=== PATIENT | female | born 1975 | race Caucasian/White ===

== ENCOUNTER 2019-04-25 12:57 | Emergency (ER) | payer BC ==
[2019-04-25] MEDS ORDERED: MORPHINE 4 MG/ML SYR ONE (13:35)
[2019-04-25] MEDS ORDERED: LORazepam 2 MG/ML VIAL ONE ×2 (13:35→15:23)
--- NOTE | 2019-04-25 13:39 | RAD REPORT ---
EXAM DESCRIPTION: RAD - Chest Single View - 04/25/2019 1:34 pm CLINICAL HISTORY: near syncope, SOB, palpitations Chest pain. COMPARISON: CHEST PA AND LAT 2 VIEW dated 10/13/2014 FINDINGS: Portable technique limits examination quality. The lungs are grossly clear. The heart is normal in size. No displaced fractures. IMPRESSION: No acute intrathoracic process suspected.
[2019-04-25] MEDS ORDERED: MORPHINE 2 MG/ML SYR ONE (14:32)
[2019-04-25 14:41] LABS: Absolute Lymphocytes (CBC) 0.9 K/uL (0.7-4.9); Basophils % 1.1 % (0-1.3); Hematocrit 33.3 % (36.0-45.0); Lymphocytes % 16.9 % (15.3-44.8); MPV 9.8 fL (7.6-11.3); RBC Red Blood Cell Count 4.32 M/uL (3.86-4.86)
[2019-04-25 14:54] LABS: ALT/SGPT 25 U/L (12-78); AST/SGOT 19 U/L (15-37); Albumin 3.6 g/dL (3.4-5.0); Alkaline Phosphatase 109 U/L (45-117); BUN Blood Urea Nitrogen 8 mg/dL (7-18); Bicarbonate 23 mmol/L (21-32); Bilirubin Direct < 0.1 mg/dL (0-0.2); Bilirubin Total 0.3 mg/dL (0.2-1.0); Glucose Level 89 mg/dL (74-106); Magnesium 2.2 mg/dL (1.8-2.4); NT PRO-BNP 172 pg/mL (<125); Potassium 3.4 mmol/L (3.5-5.1); Sodium Level 140 mmol/L (136-145); Troponin (Emerg Dept Use Only) < 0.02 ng/mL (0.0-0.045)
--- NOTE | 2019-04-25 14:55 | EKG ---
Test Date: 2019-04-25 Test Time: 13:30:24 Sheet Combining Operator: CATA MEASUREMENT RESULTS: Intervals: Rate: 83 AL: 144 QRSD: 80 QT: 372 QTc: 437 [place]: P: 60 AL: 144 QRS: 26 T: 57 INTERPRETIVE STATEMENTS: Normal sinus rhythm Normal ECG No previous ECG available for comparison Electronically Signed On 04-25-19 14:54:48 CREDENTIALING ASSISTANT by Lazaro Nicholson
[2019-04-25 15:54] LABS: Protime INR 0.98
--- NOTE | 2019-04-25 16:57 | RAD REPORT ---
EXAM DESCRIPTION: CT - Chest For Pe Angio - 04/25/2019 4:49 pm CLINICAL HISTORY: Chest pain COMPARISON: None. TECHNIQUE: Dynamically enhanced axial 3 mm thick images of the chest were obtained during administra tion of <100> mL Isovue 370 IV contrast. Coronal and oblique reconstruction images were generated and reviewed. Exam utilizes a protocol for optimal evaluation of pulmonary arterial tree. Maximum intensity projections 3D imaging was utilized All CT scans are performed using dose optimization technique as appropriate and may include automated exposure control or mA/KV adjustment according to patient size. FINDINGS: A pulmonary embolus is not seen. A thoracic aortic aneurysm is not noted. A pleural effusion is not seen. A pericardial effusion is not seen. A lung consolidation is not present. IMPRESSION: Negative for a pulmonary embolism.
--- NOTE | 2019-04-25 17:11 | RAD REPORT ---
EXAM DESCRIPTION: CTSpine Lumbar Wo Con04/25/2019 4:49 pm CLINICAL HISTORY: Back injury with back pain and radiculopathy status post fall from a ladder 7 feet COMPARISON: None TECHNIQUE: Computed axial tomography lumbar spine was obtained with coronal and sagittal reconstruct ion. All CT scans are performed using dose optimization technique as appropriate and may include automated exposure control or mA/KV adjustment according to patient size. FINDINGS: Posterior fusion involves L5 and S1 via screws and bone plug. Right hemilaminectomy L4 7.5 x 2.5 x 2 centimeter (cc by AP by trans) fluid collection lies posterior to the spinous processes extending from L3-L5. No fracture or dislocation L1-2, L2-3 and L3-4 appear unremarkable Right posterolateral soft tissue L4-5 encroaches upon the anterior right aspect of the thecal sac. Limited evaluation of L5-S1 secondary to the instrumentation Evaluation of the spinal canal is somewhat limited on a CT scan Nonobstructing left renal calculi A lucency is present within the L5-S1 bone plug IMPRESSION: Postsurgical changes involving the spine 7.5 x 2.5 x 2 centimeter (cc by AP by trans) fluid collection lies posterior to the spinous processes extending from L3-L5. This could represent a hematoma or abscess Right posterior-lateral soft tissue structure L4-5 is nonspecific on this examination. It could repre sent epidural inflammation/fibrosis secondary to surgery or disc herniation A lucency is present within the L5-S1 bone plug. This may indicate a break. Another consideration is that this is the normal appearance for this kind of a bone plug
--- NOTE | 2019-04-25 18:09 | ER ---
Nurse's Notes [facility] Name: Sumaya Villela Age: 44 yrs Sex: Female : 1975 Arrival Date: 04/25/2019 Time: 13:09 Bed 18 Private MD: Diagnosis: Palpitations;Shortness of breath;Pain in right hip;Radiculopathy Presentation: 04/25 13:10 Presenting complaint: Patient states: She had a spinal fusion 3 weeks ago. Today she aj1 started having headache, shortness of breath, palpitations, numbness in her hands and face, right hip pain, right leg pain, back pain. Reports she feels like she is having some weakness in the right leg. She went to the pharmacy today to brain picker some pain medication and she started to feel light-headed and felt like she was going to pass out so she asked pharmacy staff to call for an ambulance. Transition of care: patient was not received from another setting of care. Onset of symptoms was April 25, 2019. Risk Assessment: Do you want to hurt yourself or someone else? Patient reports no desire to harm self or others. Initial Sepsis Screen: Does the patient meet any 2 criteria? No. Patient's initial sepsis screen is negative. Does the patient have a suspected source of infection? No. Patient's initial sepsis screen is negative. Care prior to arrival: None. 13:10 Method Of Arrival: EMS: [facility] aj1 13:10 Acuity: JULIA 3 aj1 Triage Assessment: 13:15 General: Appears in no apparent distress. uncomfortable, Behavior is calm, cooperative, aj1 appropriate for age. Pain: Complains of pain in forehead, back, right hip and right leg. Historical: - Allergies: 13:15 Demerol; aj1 - Home Meds: 13:15 Reglan Oral [Active]; Robaxin Oral [Active]; Adderall XR Oral [Active]; Tylenol #3 Oral aj1 [Active]; - PMHx: 13:15 bowel obstruction; aj1 - PSHx: 13:15 spinal fusion; aj1 - Immunization history:: Adult Immunizations up to date. - Ebola Screening: : Patient denies travel to an Ebola-affected area in the 21 days before illness onset. - Social history:: Smoking status: Patient/guardian denies using tobacco. Screenin:15 Abuse screen: Denies threats or abuse. Denies injuries from another. Nutritional aj1 screening: No deficits noted. Tuberculosis screening: No symptoms or risk factors identified. 18:31 Fall Risk None identified. aj1 Assessment: 13:15 General: Appears in no apparent distress. uncomfortable, Behavior is calm, cooperative, aj1 appropriate for age. Pain: Complains of pain in back, right hip and right leg and forehead Pain does not radiate. Pain currently is 4 out of 10 on a pain scale. Neuro: Level of Consciousness is awake, alert, obeys commands, Oriented to person, place, time, situation, Moves all extremities. Speech is normal, Facial symmetry appears normal, Reports headache numbness in face, right hand and left hand weakness in right foot. Cardiovascular: Reports palpitations, shortness of breath, Patient's skin is warm and dry. Rhythm is sinus rhythm. Respiratory: Reports shortness of breath cough that is dry, Airway is patent Respiratory effort is even, unlabored, Respiratory pattern is regular, symmetrical. GI: No signs and/or symptoms were reported involving the gastrointestinal system. : No signs and/or symptoms were reported regarding the genitourinary system. EENT: No signs and/or symptoms were reported regarding the EENT system. Derm: No signs and/or symptoms reported regarding the dermatologic system. Skin is pink, warm \T\ dry. normal. Musculoskeletal: No signs and/or symptoms reported regarding the musculoskeletal system. Circulation, motion, and sensation intact. 14:15 Reassessment: Patient appears in no apparent distress at this time. No changes from aj1 previously documented assessment. Patient and/or family updated on plan of care and expected duration. Pain level reassessed. Patient is alert, oriented x 3, equal unlabored respirations, skin warm/dry/pink. 14:18 Reassessment: Patient states that the medications helped, but her headache is starting aj1 to come back. Notified Dr. King. 15:15 Reassessment: Patient states that she would like some ice chips and something to help aj1 relax her. Notified Dr. King. Order received. 15:55 Reassessment: Patient transported to MRI via stretcher. aj1 17:05 Reassessment: Patient returned to room from CT. Patient states that her headache is aj1 back. Notified Dr. Kign. 17:58 Reassessment: Patient appears in no apparent distress at this time. No changes from aj1 previously documented assessment. Patient and/or family updated on plan of care and expected duration. Pain level reassessed. Patient is alert, oriented x 3, equal unlabored respirations, skin warm/dry/pink. Vital Signs: 13:15 BP 145 / 96; Pulse 89; Resp 16; Pulse Ox 100% on R/A; Pain 4/10; aj1 13:30 Temp 97.5(TE); aj1 14:35 BP 170 / 93; Pulse 99; Resp 16; Pulse Ox 98% on R/A; aj1 15:30 BP 131 / 85; Pulse 80; Resp 18; Pulse Ox 99% on R/A; aj1 17:05 BP 124 / 84; Pulse 73; Resp 13; Pulse Ox 100% on R/A; aj1 17:59 BP 131 / 90; Pulse 87; Resp 18; Pulse Ox 97% on R/A; aj1 18:05 Weight 67.13 kg (R); aj1 ED Course: 13:09 Patient arrived in ED. tw2 13:10 Emily Johnson, RN is Primary Nurse. aj1 13:11 Anival King MD is Attending Physician. kdr 13:13 Triage completed. aj1 13:15 Arm band placed on. aj1 13:15 Patient has correct armband on for positive identification. Bed in low position. Call aj1 light in reach. 13:15 No provider procedures requiring assistance completed. Maintain EMS IV. Dressing aj1 intact. Site clean \T\ dry. Gauge \T\ site: 20g left wrist. 13:35 EKG done, by orthotic finish grinding technician. reviewed by Anival King MD. at1 13:36 XRAY Chest (1 view) In Process Unspecified. EDMS 16:52 Chest For Pe Angio In Process Unspecified. EDMS 16:52 Spine Lumbar Wo Con In Process Unspecified. EDMS 18:31 IV discontinued, intact, bleeding controlled, No redness/swelling at site. Pressure aj1 dressing applied. Administered Medications: 13:41 Drug: morphine 4 mg {Note: RASS score 0 patient is alert.} Route: IVP; Site: left wrist;aj1 14:40 Follow up: Response: No adverse reaction; RASS: Alert and Calm (0) aj1 13:41 Drug: Ativan 1 mg Route: IVP; Site: left wrist; aj1 14:40 Follow up: Response: No adverse reaction aj1 14:34 Drug: morphine 2 mg Route: IVP; Site: left wrist; aj1 15:30 Follow up: Response: No adverse reaction; RASS: Alert and Calm (0) aj1 15:29 Drug: Ativan 1 mg Route: IVP; Site: left wrist; aj1 16:30 Follow up: Response: No adverse reaction aj1 18:06 CANCELLED (Duplicate Order): Lovenox 0.5 mg/kg Sub-Q once aj1 18:12 Drug: Lovenox 0.5 mg/kg Route: Sub-Q; Site: right lower abdomen; aj1 18:32 Follow up: Response: No adverse reaction aj1 Outcome: 18:08 Discharge ordered by . denton 18:32 Discharged to home ambulatory. aj1 18:32 Condition: good 18:32 Discharge instructions given to patient, Instructed on discharge instructions, follow up and referral plans. medication usage, Demonstrated understanding of instructions, follow-up care, medications, Prescriptions given X 1. 18:32 Patient left the ED. aj1 Signatures: Dispatcher [employer] EDEmily Gordon RN RN aj1 Anival Knig MD MD kdr Gonzales, Amanda, sales correspondent EKG Tat1 Maeve Quinones RN RN tw2 Corrections: (The following items were deleted from the chart) 16:42 15:55 Reassessment: Patient transported to [place] via stretcher aj1 aj1
[2019-04-25] MEDS ORDERED: ENOXAPARIN 30 MG/0.3 ML SQ ONE (18:10)
--- NOTE | 2019-04-25 18:10 | EDPHYS ---
Physician Documentation [facility] Name: Sumaya Villela Age: 44 yrs Sex: Female : 1975 Arrival Date: 04/25/2019 Time: 13:09 Bed 18 Private MD: ED Physician Anival King HPI: 04/25 13:17 This 44 yrs old Female presents to ER via EMS with complaints of near kdr syncope, palpitations and right hip pain. 13:17 The patient has had a recently (3 weeks ago) lumbar spinal surgery which has appeared kdr to progress normally until the last 12 hours when she started to have increasing pain in her left hip. She denies the pain being like sciatic pain. . Onset: The symptoms/episode began/occurred suddenly, today, More acute pain just prior to arrival while driving. Severity of symptoms: At their worst the symptoms were moderate severe incapacitating just prior to arrival, in the emergency department the symptoms have improved markedly. The patient has not experienced similar symptoms in the past. As noted above, she had spinal surgery about three ago. She has well healing incisions to her low back and abdominal area. Historical: - Allergies: 13:15 Demerol; aj1 - Home Meds: 13:15 Reglan Oral [Active]; Robaxin Oral [Active]; Adderall XR Oral [Active]; Tylenol #3 Oral aj1 [Active]; - PMHx: 13:15 bowel obstruction; aj1 - PSHx: 13:15 spinal fusion; aj1 - Immunization history:: Adult Immunizations up to date. - Ebola Screening: : Patient denies travel to an Ebola-affected area in the 21 days before illness onset. - Social history:: Smoking status: Patient/guardian denies using tobacco. ROS: 13:17 Constitutional: Negative for fever, chills, and weight loss, Eyes: Negative for injury, kdr pain, redness, and discharge, ENT: Negative for injury, pain, and discharge, Neck: Negative for injury, pain, and swelling, Abdomen/GI: Negative for abdominal pain, nausea, vomiting, diarrhea, and constipation, Back: Negative for injury and pain, : Negative for injury, bleeding, discharge, and swelling, MS/Extremity: Negative for injury and deformity, Skin: Negative for injury, rash, and discoloration, Neuro: Negative for headache, weakness, numbness, tingling, and seizure activity. 13:17 Cardiovascular: Positive for 13:17 Cardiovascular: Positive for 13:17 Respiratory: Positive for shortness of breath. Exam: 13:17 Constitutional: This is a well developed, well nourished patient who is awake, alert, kdr and in no acute distress. Head/Face: Normocephalic, atraumatic. Eyes: Pupils equal round and reactive to light, extra-ocular motions intact. Lids and lashes normal. Conjunctiva and sclera are non-icteric and not injected. Cornea within normal limits. Periorbital areas with no swelling, redness, or edema. Neck: Trachea midline, no thyromegaly or masses palpated, and no cervical lymphadenopathy. Supple, full range of motion without nuchal rigidity, or vertebral point tenderness. No Meningismus. Chest/axilla: Normal chest wall appearance and motion. Nontender with no deformity. No lesions are appreciated. Cardiovascular: Regular rate and rhythm with a normal S1 and S2. No gallops, murmurs, or rubs. Normal PMI, no JVD. No pulse deficits. Respiratory: Lungs have equal breath sounds bilaterally, clear to auscultation and percussion. No rales, rhonchi or wheezes noted. No increased work of breathing, no retractions or nasal flaring. Abdomen/GI: Soft, non-tender, with normal bowel sounds. No distension or tympany. No guarding or rebound. No evidence of tenderness throughout. Back: No spinal tenderness. No costovertebral tenderness. Full range of motion. Skin: Warm, dry with normal turgor. Normal color with no rashes, no lesions, and no evidence of cellulitis. MS/ Extremity: Pulses equal, no cyanosis. Neurovascular intact. Full, normal range of motion. Neuro: Awake and alert, GCS 15, oriented to person, place, time, and situation. Cranial nerves II-XII grossly intact. Motor strength 5/5 in all extremities. Sensory grossly intact. Cerebellar exam normal. Normal gait. Psych: Awake, alert, with orientation to person, place and time. Behavior, mood, and affect are within normal limits. Vital Signs: 13:15 BP 145 / 96; Pulse 89; Resp 16; Pulse Ox 100% on R/A; Pain 4/10; aj1 13:30 Temp 97.5(TE); aj1 14:35 BP 170 / 93; Pulse 99; Resp 16; Pulse Ox 98% on R/A; aj1 15:30 BP 131 / 85; Pulse 80; Resp 18; Pulse Ox 99% on R/A; aj1 17:05 BP 124 / 84; Pulse 73; Resp 13; Pulse Ox 100% on R/A; aj1 17:59 BP 131 / 90; Pulse 87; Resp 18; Pulse Ox 97% on R/A; aj1 18:05 Weight 67.13 kg (R); aj1 MDM: 18:08 Patient medically screened. kdr 18:10 Data reviewed: vital signs, nurses notes. Counseling: I had a detailed discussion with [facility] the patient and/or guardian regarding: the historical points, exam findings, and any diagnostic results supporting the discharge/admit diagnosis, lab results, radiology results, the need for outpatient follow up. Physician consultation: A Dr. Russ was called at 18:10, was contacted at 18:11, regarding consult, patient's condition, and will see patient in office, next week. 18:11 Differential Diagnosis PE, DVT, Radicular pain, abscess, hematoma. ED course: The [facility] patient did not have any s/s to suggest PE while in the ED. Patient concerned about possible micro emboli given elevated DD. Requested a course of Lovenox until she could get into see her PCP> Dr. Mars had no objection to her being on Lovenox should it be required. The patient had been on Lovenox until the last week and had been wearing compression socks until the last few days. She was otherwise stable and without apparent life/limb threatening issues. 04/25 13:14 Order name: Basic Metabolic Panel; Complete Time: 15:13 [facility] 04/25 13:14 Order name: CBC with Diff; Complete Time: 15:13 [facility] 04/25 13:14 Order name: LFT's; Complete Time: 15:13 [facility] 04/25 13:14 Order name: Magnesium; Complete Time: 15:13 [facility] 04/25 13:14 Order name: NT PRO-BNP; Complete Time: 15:13 [facility] 04/25 13:14 Order name: PT-INR; Complete Time: 17:29 [facility] 04/25 13:14 Order name: Troponin (emerg Dept Use Only); Complete Time: 15:13 kdr 04/25 13:14 Order name: XRAY Chest (1 view); Complete Time: 15:13 kdr 04/25 13:16 Order name: DD; Complete Time: 17:29 kdr 04/25 15:46 Order name: TSH; Complete Time: 17:29 kdr 04/25 16:10 Order name: Chest For Pe Angio; Complete Time: 17:29 EDMS 04/25 16:10 Order name: Spine Lumbar Wo Con; Complete Time: 17:44 EDMS 04/25 13:14 Order name: EKG; Complete Time: 13:16 kdr 04/25 13:14 Order name: Cardiac monitoring; Complete Time: 13:27 kdr 04/25 13:14 Order name: EKG - Nurse/Tech; Complete Time: 13:31 kdr 04/25 13:14 Order name: IV Saline Lock; Complete Time: 13:41 kdr 04/25 13:14 Order name: Labs collected and sent; Complete Time: 16:32 kdr 04/25 13:14 Order name: O2 Per Protocol; Complete Time: 13:27 kdr 04/25 13:14 Order name: O2 Sat Monitoring; Complete Time: 13:27 kdr Administered Medications: 13:41 Drug: morphine 4 mg {Note: RASS score 0 patient is alert.} Route: IVP; Site: left wrist;aj1 14:40 Follow up: Response: No adverse reaction; RASS: Alert and Calm (0) aj1 13:41 Drug: Ativan 1 mg Route: IVP; Site: left wrist; aj1 14:40 Follow up: Response: No adverse reaction aj1 14:34 Drug: morphine 2 mg Route: IVP; Site: left wrist; aj1 15:30 Follow up: Response: No adverse reaction; RASS: Alert and Calm (0) aj1 15:29 Drug: Ativan 1 mg Route: IVP; Site: left wrist; aj1 16:30 Follow up: Response: No adverse reaction aj1 18:06 CANCELLED (Duplicate Order): Lovenox 0.5 mg/kg Sub-Q once aj1 18:12 Drug: Lovenox 0.5 mg/kg Route: Sub-Q; Site: right lower abdomen; aj1 18:32 Follow up: Response: No adverse reaction aj1 Disposition: 04/25/19 18:08 Discharged to Home. Impression: Palpitations, Shortness of breath, Pain in right hip, Radiculopathy. - Condition is Stable. - Discharge Instructions: Shortness of Breath, Hip Pain, Palpitations, [id number]. - Prescriptions for Lovenox 40 mg/0.4 mL Subcutaneous Syringe - inject 0.4 milliliter by SUBCUTANEOUS route every 12 hours; 16 milliliter. - Medication Reconciliation Form, Thank You Letter form. - Follow up: Private Physician; When: 2 - 3 days; Reason: If symptoms return, Further diagnostic work-up, Recheck today's complaints, Continuance of care, Re-evaluation by your physician. - Problem is an acute exacerbation. - Symptoms have improved. Signatures: Dispatcher [employer] Emily Almanzar RN RN aj1 Anival King MD MD [facility] Corrections: (The following items were deleted from the chart) 16:09 13:17 Lumbar Spine Wo Con+MRI.RAD.BRZ ordered. [facility] 18:06 18:06 Lovenox 0.5 mg/kg Sub-Q once ordered. aj1 aj1 18:32 18:08 04/25/2019 18:08 Discharged to Home. Impression: Palpitations; Shortness of aj1 breath; Pain in right hip; Radiculopathy. Condition is Stable. Forms are Medication Reconciliation Form, Thank You Letter, Antibiotic Education, Prescription Opioid Use. Follow up: Private Physician; When: 2 - 3 days; Reason: If symptoms return, Further diagnostic work-up, Recheck today's complaints, Continuance of care, Re-evaluation by your physician. Problem is an acute exacerbation. Symptoms have improved. kdr
[2019-04-25 18:40] VITALS: TEMP 97.5
[2019-04-25 18:47] VITALS: BP 131/90; O2SAT 97
== END 2019-04-25 18:32 | disposition home or self-care (01) ==
LOC: ER 12:57
DX: R00.2 Palpitations (principal); M54.10 Radiculopathy, site unspecified; M25.551 Pain in right hip; Z88.5 Allergy status to narcotic agent
CPT/HCPCS: 93005; 85025; 80048; 36415; 83735; 85610; 85379; 80076; 84443; 84484; 83880; 72131; 71275; 71045; 96375; 96372; 96374; 99284; Q9967; J1650; J2270